=== PATIENT | female | born 1990 ===

== ENCOUNTER 2016-11-02 08:30 | Emergency (ER) | payer MEDICAID, OTHER ==
[2016-11-02 08:31] VITALS: BMI 27.4
[2016-11-02 08:57] VITALS: BP 116/80; PULSE 62; RESP 16; TEMP 98.5; O2SAT 98
--- NOTE | 2016-11-02 09:21 | C.PDOC ---
History Of Present Illness 26 y/o female presents to the ED stating she "thinks something crawled in my ear last night" while sleeping. PMHx bipolar disorder. Denies fever, chills, pain, discharge from the ear or any other complaints. Time Seen by Provider: 11/02/16 09:18 Chief Complaint (Nursing): Foreign Body History Per: Patient History/Exam Limitations: None Onset/Duration Of Symptoms: Hrs Current Symptoms Are (Timing): Still Present Quality (Ear): denies: Discharge Quality (Mouth/Throat): denies: Drainage Symptoms Have Been: Continuous Severity: Mild Anticoagulant/Antiplatlet Use?: No Past Medical History Reviewed: Historical Data, Nursing Documentation, Vital Signs Vital Signs: Last Vital Signs Temp 98.5 F 11/02/16 08:57 Pulse 62 11/02/16 08:57 Resp 16 11/02/16 08:57 BP 116/80 11/02/16 08:57 Pulse Ox 98 11/02/16 10:31 - Medical History PMH: Anxiety, Bipolar Disorder, Depression, Diabetes, Hypercholesterolemia, Chronic Kidney Disease - [facility] Procedures GROUP PSYCHOTHERAPY (09/30/16) INDIVID PSYCHOTHERAP NEC (07/25/14) INDIVIDUAL PSYCHOTHERAPY, BEHAVIORAL (09/30/16) INDIVIDUAL PSYCHOTHERAPY, COGNITIVE-BEHAVIORAL (06/03/16) INDIVIDUAL PSYCHOTHERAPY, SUPPORTIVE (06/03/16) MEDICATION MANAGEMENT (08/23/15) OTHER GROUP THERAPY (07/25/14) PSYCHIAT DRUG THERAP NEC (04/18/12) Family History: States: Unknown Family Hx - Social History Hx Tobacco Use: No Hx Alcohol Use: Yes (occassional) Hx Substance Use: No - Immunization History Hx Tetanus Toxoid Vaccination: No Hx Influenza Vaccination: No Hx Pneumococcal Vaccination: No Review Of Systems Constitutional: Negative for: Fever, Chills ENT: Positive for: Other (foreign body sensation to right ear). Negative for: Ear Pain, Ear Discharge Physical Exam - Physical Exam Appears: Non-toxic, No Acute Distress Skin: Warm, Dry, No Rash Head: Atraumatic, Normacephalic Eye(s): left: Other (eye patch) Ear(s): Bilateral: Normal (bilateral canal and TM normal; no foreign body) Nose: Normal Oral Mucosa: Moist Throat: Normal Neck: Normal, Normal ROM, Supple Neurological/Psych: Oriented x3, Normal Speech ED Course And Treatment O2 Sat by Pulse Oximetry: 98 (room air) Pulse Ox Interpretation: Normal Medical Decision Making Medical Decision Making: eval of b/l ear canals, no FB, normal TM's Disposition Doctor Will See Patient In The: Office Counseled Patient/Family Regarding: Studies Performed, Diagnosis - Disposition Referrals: [facility] [Outside] Disposition: HOME/ ROUTINE Disposition Time: 09:21 Condition: GOOD Additional Instructions: you have NORMAL ear exams today there is NO foreign body in your ear canals Follow-up with your PMD as needed or in our FREE clinic. Forms: General Discharge Instructions - Clinical Impression Clinical Impression: ENT complaint - Scribe Statement The provider has reviewed the documentation as recorded by the Sung Avalos Provider Attestation: All medical record entries made by the Sung were at my direction and personally dictated by me. I have reviewed the chart and agree that the record accurately reflects my personal performance of the history, physical exam, medical decision making, and the department course for this patient. I have also personally directed, reviewed, and agree with the discharge instructions and disposition.
== END 2016-11-02 09:37 | disposition home or self-care (01) ==
LOC: C.ER 08:30 → SUPCPDRO 08:30 → C.ER 09:37
DX: H93.8X1 Other specified disorders of right ear (principal)

== ENCOUNTER 2016-11-05 16:57 | Inpatient (IN) | payer MEDICAID, OTHER ==
[2016-11-05 16:57] VITALS: BMI 27.4
[2016-11-05 19:10] LABS: BASO # 0.1 K/uL (0.0-0.2); BASO % 0.6 % (0.0-2.0); EOS # 0.4 K/uL (0.0-0.7); EOS % 4.3 % (0.0-4.0); HEMOGLOBIN 12.1 g/dL (11.0-16.0); LYMPH # 2.4 K/uL (1.0-4.3); LYMPH % 24.9 % (20.0-40.0); MEAN CELL VOLUME 77.5 fL (81.0-99.0); MEAN CORPUSCULAR HGB CONC 32.3 g/dL (33.0-37.0); MEAN PLATELET VOLUME 7.7 fL (7.2-11.7); MONO # 0.8 K/uL (0.0-0.8); MONO % 8.8 % (0.0-10.0); NEUT # 5.8 K/uL (1.8-7.0); NEUT % 61.4 % (50.0-75.0); RBC 4.85 Mil/uL (3.80-5.20); RED CELL DISTRIBUTION WIDTH 13.7 % (11.5-14.5); WHITE BLOOD COUNT 9.4 K/uL (4.8-10.8)
[2016-11-05 19:16] LABS: ALBUMIN 4.2 g/dL (3.5-5.0); HCG,QUALITATIVE URINE NEGATIVE (NEGATIVE)
[2016-11-05 19:18] LABS: GFR AFRICAN-AMERICAN > 60; GFR NON-AFRICAN AMERICAN > 60; SQUAMOUS EPITHIAL 81 /hpf (0-5); URINE BILIRUBIN NEGATIVE (NEGATIVE); URINE BLOOD NEGATIVE (NEGATIVE); URINE CALCIUM OXALATE CRYSTALS MANY /hpf (<OCC); URINE CLARITY Hazy (Clear); URINE GLUCOSE (UA) NORMAL (Normal); URINE LEUKOCYTE ESTERASE 3+ Leu/uL (Negative); URINE NITRATE NEGATIVE (NEGATIVE); URINE PROTEIN 1+ mg/dL (NEGATIVE); URINE UROBILINOGEN NORMAL mg/dL (0.2-1.0)
[2016-11-05 19:19] LABS: ALB/GLOB RATIO 1.2 (1.0-2.1); ALT/SGPT 38 U/L (9-52); AST/SGOT 26 U/L (14-36); BLOOD UREA NITROGEN 15 mg/dL (7-17); CALCIUM 9.3 mg/dl (8.6-10.4); URINE BACTERIA FEW (<OCC); URINE COLOR YELLOW (YELLOW)
[2016-11-05 19:23] LABS: BARBITURATES, UR NEGATIVE (NEGATIVE)
[2016-11-05 19:24] LABS: BENZODIAZEPINES, UR NEGATIVE (NEGATIVE)
[2016-11-05 19:27] LABS: OPIATES, UR NEGATIVE (NEGATIVE)
[2016-11-05 19:28] LABS: PHENCYCLIDINE, UR NEGATIVE (NEGATIVE)
[2016-11-05] MEDS ORDERED: Permethrin 1% Kit 59 ML BOTTLE TOP STA (20:21)
--- NOTE | 2016-11-05 21:11 | C.PDOC ---
Time Seen by Provider: 11/05/16 17:50 Chief Complaint (Nursing): Psychiatric Evaluation History Per: Patient Onset/Duration Of Symptoms: Days (1) Current Symptoms Are (Timing): Still Present Suicide/Self Injury Attempted (Context): None Modifying Factor(s): None Severity: Moderate Associated Symptoms: Anxiety, Depression. denies: Suicidal Thoughts, Suicidal Plan Additional History Per: Prior Records Past Medical History Reviewed: Historical Data, Nursing Documentation, Vital Signs Vital Signs: Last Vital Signs Temp 98.7 F 11/05/16 17:09 Pulse 94 H 11/05/16 17:09 Resp 18 11/05/16 17:09 BP 112/78 11/05/16 17:09 Pulse Ox 99 11/05/16 17:09 - Medical History PMH: Anxiety, Bipolar Disorder, Depression, Hypercholesterolemia, Chronic Kidney Disease - [facility] Procedures GROUP PSYCHOTHERAPY (09/30/16) INDIVID PSYCHOTHERAP NEC (07/25/14) INDIVIDUAL PSYCHOTHERAPY, BEHAVIORAL (09/30/16) INDIVIDUAL PSYCHOTHERAPY, COGNITIVE-BEHAVIORAL (06/03/16) INDIVIDUAL PSYCHOTHERAPY, SUPPORTIVE (06/03/16) MEDICATION MANAGEMENT (08/23/15) OTHER GROUP THERAPY (07/25/14) PSYCHIAT DRUG THERAP NEC (04/18/12) Family History: States: Unknown Family Hx - Social History Hx Tobacco Use: No Hx Alcohol Use: No (occassional) Hx Substance Use: No - Immunization History Hx Tetanus Toxoid Vaccination: No Hx Influenza Vaccination: No Hx Pneumococcal Vaccination: No Review Of Systems Except As Marked, All Systems Reviewed And Found Negative. Constitutional: Negative for: Fever, Weakness Cardiovascular: Negative for: Chest Pain Respiratory: Negative for: Shortness of Breath Gastrointestinal: Negative for: Vomiting, Abdominal Pain Musculoskeletal: Negative for: Neck Pain Skin: Negative for: Rash Neurological: Negative for: Weakness, Numbness, Seizures, Altered Mental Status Physical Exam - Physical Exam Appears: Non-toxic, No Acute Distress Skin: Normal Color, Warm, Dry, No Rash Head: Atraumatic, Normacephalic Eye(s): bilateral: PERRL, EOMI Neck: Normal ROM, Supple Cardiovascular: Rhythm Regular Respiratory: Normal Breath Sounds, No Accessory Muscle Use Gastrointestinal/Abdominal: Soft, No Tenderness Back: No CVA Tenderness Extremity: Normal ROM Neurological/Psych: Oriented x3, Normal Motor, Normal Sensation ED Course And Treatment - Laboratory Results Result Diagrams: 11/05/16 19:04 11/05/16 19:04 Lab Interpretation: No Acute Changes Urine POC: Negative O2 Sat by Pulse Oximetry: 99 Pulse Ox Interpretation: Normal Progress Note: Pt is medically stable for psychiatric admission. Pt with possible lice. Pt treated with Nix in the ED. Reassessment Condition: Improved Disposition Counseled Patient/Family Regarding: Studies Performed, Diagnosis - Disposition Disposition: HOSPITALIZED Disposition Time: 21:00 Condition: STABLE - Clinical Impression Clinical Impression: Bipolar disorder Decision To Admit - Pt Status Changed To: Hospital Disposition Of: Inpatient - Admit Certification Admit to Inpatient:: After my assessment, the patient will require hospitalization for at least two midnights. This is because of the severity of symptoms shown, intensity of services needed, and/or the medical risk in this patient being treated as an outpatient. - InPatient: Physician Admission Certification: I certify that this patient requires 2 or more midnights of care for the following reason:: Psych. - . Bed Request Type: Psychiatry Admitting Physician: Sosa Georges Patient Diagnosis: Bipolar disorder
[2016-11-05 21:53] VITALS: O2SAT 98
[2016-11-05] MEDS ORDERED: Permethrin 1% Kit 59 ML BOTTLE TOP ONE (23:30)
--- NOTE | 2016-11-06 15:56 | PCM.PSYCH ---
Initial Psychiatric Evaluation - Initial Psychiatric Evaluation Type of Admission: Voluntary Legal Status: Capacity Chief Complaint (in patient's own words): 'I am feeling depressed and suicidal' History of Present Illness and Precipitating Events: Patient is a 26-year-old female, who lives alone, came to the hospital for feeling depressed and suicidal. Patient remained bizarre, disorganized and internally preoccupied during the evaluation. She was superficially cooperative and remained guarded about the details. She states that she stopped taking her pills and became increasingly depressed and yesterday she was feeling suicidal and scared, 'I was going to cut myself." She reports feelings of hopelessness and helplessness. She appeared disheveled and unkempt. As per the staff, her wig and hair were full of lice. She appeared to have thought blocking. But she denies any auditory or visual hallucinations. She denies any history of substance abuse. Patient reports multiple suicidal attempts in the past, i.e, by cutting her wrists, and taking pills. She has h/o multiple past psychiatric hospitalizations with most recent one in September 2016 at [place], [place]. Past medical history hypercholesterolemia, Left eye blindness s/p eye-patch. Current Medications: Active Medications Generic Name Dose Route Start Last Admin Trade Name Freq PRN Reason Stop Dose Admin Escitalopram Oxalate 5 mg 11/06/16 10:00 11/06/16 10:44 Lexapro PO 5 mg DAILY BAMBI Administration Hydroxyzine HCl 50 mg 11/05/16 22:00 Atarax PO Q6H PRN Anxiety Ibuprofen 600 mg 11/05/16 22:00 Motrin Tab PO Q6H PRN Pain, moderate (4-7) Quetiapine Fumarate 200 mg 11/05/16 22:00 11/06/16 00:40 Seroquel PO 200 mg HS BAMBI Administration Quetiapine Fumarate 25 mg 11/06/16 10:00 11/06/16 10:44 Seroquel PO 25 mg DAILY BAMBI Administration Trazodone HCl 50 mg 11/05/16 22:00 11/06/16 00:39 Desyrel PO Not Given HS BAMBI Past Psychiatric History - Past Psychiatric History Previous Treatment History: Inpatient Pertinent Medical Hx (Current Medical&Sleep Prob, Allergies): Allergies Allergy/AdvReac Type Severity Reaction Status Date / Time No Known Allergies Allergy Verified 11/05/16 17:01 Escitalopram [Lexapro] 5 mg PO DAILY #30 tab 10/06/16 QUEtiapine [SEROquel] 200 mg PO HS #30 tab 10/06/16 QUEtiapine [Seroquel] 25 mg PO DAILY #30 tab 10/06/16 Review of Systems - Review of Systems All systems: reviewed and no additional remarkable complaints except - Psychiatric Psychiatric: Anxiety, Depression, Hopelessness, Paranoia, Suicidal Ideation Mental Status Examination - Personal Presentation Personal Presentation: Looks stated age - Affect Affect: Constricted, Blunted, Depressed - Motor Activity Motor Activity: Calm - Reliability in Providing Information Reliability in Providing Information: Poor, due to alteration in thoughts, Poor , due to altered mood - Speech Speech: Disorganized - Mood Mood: Depressed, Anxious - Formal Thought Process Formal Thought Process: Delusions, Paranoia, Loosening of associations - Obsessions/Compulsions Obsessions: No Compulsions: No - Cognitive Functions Orientation: Person, Place, Situation, Time Sensorium: Alert Attention/Concentration: Attentive Abstract Thinking: Alkol Estimate of Intelligence: Below average Judgement: Imparied, as evidence by: Poor judgement, Imparied, as evidence by: Lack of insight into illness - Risk Risk: Suicidal, Diminished functioning - Strength & Assets Inventory Strength & Assets Inventory: Cooperative - Limitations Limitations: Living alone DSM 5 DX - DSM 5 DSM 5 Diagnosis: Bipolar disorder mixed severe with psychotic features r/o Borderline personalty disorder - Recommended/Plan of Treatment Treatment Recommendations and Plan of Treatment: Bipolar disorder mixed severe with psychotic features r/o Borderline personalty disorder CBT Psychoeducation Supportive therapy, group therapy, individual therapy Lexapro 5 mg PO Daily Seroquel 25 mg by mouth daily Seroquel 200 mg by mouth at bedtime Trazodone 50 mg by mouth at bedtime Hypercholestrolimia Monitor s/s L eye blindness Monitor signs and symptoms
--- NOTE | 2016-11-07 11:10 | PCM.PYCHPN ---
Psychiatric Progress Note - Psychiatric Progress Note Patient seen today, length of contact: 16 min Patient Chief Complaint: 'I am feeling depressed and suicidal' Problems Identified/Issues Discussed: Patient seen and evaluated, chart reviewed and discussed with the nurse. Patient remained disorganized and internally preoccupied. Patient remained isolated, confined and withdrawn. She appears depressed and paranoid. She reports feelings of hopelessness and helplessness. She remained isolated and withdrawn. As per the nursing staff she has body and hair lice, and she was continuously scratching throughout the interview. She is taking medication and denies any side effects. Supportive therapy and psychoeducation were given. Medication Change: No Medical Record Reviewed: Yes Mental Status Examination - Cognitive Function Orientation: Person, Place, Situation, Time Memory: Intact Attention: Poor Concentration: Poor Association: Loose Fund of Knowledge: Poor - Mood Mood: Depressed, Anxious - Affect Affect: Constricted, Blunted, Depressed - Formal Thought Process Formal Thought Process: Delusions, Paranoia, Loosening of associations - Homicidal Ideation Homicidal Ideation: No Goal/Treatment Plan - Goal/Treatment Plan Need for Continued Stay: Discharge may exacerbated symptoms, Severe functional impairment Progress Toward Problem(s) and Goals/Treatment Plan: Bipolar disorder mixed severe with psychotic features r/o Borderline personalty disorder CBT Psychoeducation Supportive therapy, group therapy, individual therapy Lexapro 5 mg PO Daily Seroquel 25 mg by mouth daily Seroquel 200 mg by mouth at bedtime Trazodone 50 mg by mouth at bedtime Hypercholestrolimia Monitor s/s L eye blindness Monitor signs and symptoms - Smoking Cessation Smoking Cessation Initiated: No
--- NOTE | 2016-11-08 10:42 | PCM.PYCHPN ---
Psychiatric Progress Note - Psychiatric Progress Note Patient seen today, length of contact: 15 min Patient Chief Complaint: 'I am feeling little better' Problems Identified/Issues Discussed: Patient seen and evaluated, chart reviewed and discussed with the nurse. Patient appeared more organized and less internally preoccupied than before. however she remained isolated, confined and withdrawn. She appears depressed and paranoid. She was still scratching herself throughout the interview, because of lice. She is taking medication and denies any side effects. Supportive therapy and psychoeducation were given. Medication Change: Yes (increase Seroquel) Medical Record Reviewed: Yes Mental Status Examination - Cognitive Function Orientation: Person, Place, Situation, Time Memory: Intact Attention: WNL Concentration: Poor Association: Loose Fund of Knowledge: Poor - Mood Mood: Depressed, Anxious - Affect Affect: Constricted, Blunted, Depressed - Speech Speech: Soft - Formal Thought Process Formal Thought Process: Delusions, Paranoia, Loosening of associations - Suicidal Ideation Suicidal Ideation: No - Homicidal Ideation Homicidal Ideation: No Goal/Treatment Plan - Goal/Treatment Plan Need for Continued Stay: Discharge may exacerbated symptoms, Severe functional impairment Progress Toward Problem(s) and Goals/Treatment Plan: Bipolar disorder mixed severe with psychotic features r/o Borderline personalty disorder CBT Psychoeducation Supportive therapy, group therapy, individual therapy Lexapro 5 mg PO Daily Seroquel 50 mg by mouth daily Seroquel 200 mg by mouth at bedtime Trazodone 50 mg by mouth at bedtime Hypercholestrolimia Monitor s/s L eye blindness Monitor signs and symptoms - Smoking Cessation Smoking Cessation Initiated: No
--- NOTE | 2016-11-09 14:22 | PCM.PYCHPN ---
Psychiatric Progress Note - Psychiatric Progress Note Patient seen today, length of contact: 17 min Patient Chief Complaint: "I am feeling better and less depressed" Problems Identified/Issues Discussed: The pt is seen, chart reviewed, case discussed with staff. Patient came out of her room, took shower and went one to the dining room. Today she reports improvement in her mood and appears less depressed. She denies any voices or hallucinations. 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 The pt is compliant with medications and reports no side-effects. Symptoms are improving but needs more time to stabilize. After care discussed, support and psychoeducation given. Medication Change: Yes (increase Lexapro) Medical Record Reviewed: Yes Mental Status Examination - Cognitive Function Orientation: Person, Place, Situation, Time Memory: Intact Attention: WNL Concentration: Poor Association: WNL Fund of Knowledge: Poor - Mood Mood: Depressed, Anxious - Affect Affect: Constricted, Blunted, Depressed - Speech Speech: Soft - Formal Thought Process Formal Thought Process: No Impairment - Suicidal Ideation Suicidal Ideation: No - Homicidal Ideation Homicidal Ideation: No Goal/Treatment Plan - Goal/Treatment Plan Need for Continued Stay: Severe depression anxiety, Discharge may exacerbated symptoms Progress Toward Problem(s) and Goals/Treatment Plan: Bipolar disorder mixed severe with psychotic features r/o Borderline personalty disorder CBT Psychoeducation Supportive therapy, group therapy, individual therapy Lexapro 10 mg PO Daily Seroquel 50 mg by mouth daily Seroquel 200 mg by mouth at bedtime Trazodone 50 mg by mouth at bedtime Hypercholestrolimia Monitor s/s L eye blindness Monitor signs and symptoms After care planning by JOSE Estimated Date of D/C: 11/12/16 - Smoking Cessation Smoking Cessation Initiated: No
[2016-11-10 09:43] VITALS: TEMP 97.8
[2016-11-10 15:41] VITALS: BP 121/85; PULSE 106; RESP 19
--- NOTE | 2016-11-10 16:00 | PCM.PYCHPN ---
Psychiatric Progress Note - Psychiatric Progress Note Patient seen today, length of contact: 18 min Patient Chief Complaint: "I am worried about how I will get my prescriptions" Problems Identified/Issues Discussed: The pt is seen, chart reviewed, case discussed with staff. Patient is out of bed today and reports feeling better. She denies any voices or hallucinations. Patient appears disorganized in thought, as if when talking to her, her mind is elsewhere. The pt is compliant with medications and reports no side-effects. Symptoms are improving but needs more time to stabilize. After care discussed, support and psychoeducation given. Medication Change: No Medical Record Reviewed: Yes Mental Status Examination - Cognitive Function Orientation: Person, Place, Situation, Time Memory: Intact Attention: WNL Concentration: Poor Association: WNL Fund of Knowledge: Poor - Mood Mood: Depressed, Anxious - Affect Affect: Constricted, Blunted, Depressed - Speech Speech: Soft - Formal Thought Process Formal Thought Process: No Impairment - Suicidal Ideation Suicidal Ideation: No - Homicidal Ideation Homicidal Ideation: No Goal/Treatment Plan - Goal/Treatment Plan Need for Continued Stay: Severe depression anxiety, Discharge may exacerbated symptoms Progress Toward Problem(s) and Goals/Treatment Plan: Bipolar disorder mixed severe with psychotic features r/o Borderline personalty disorder CBT Psychoeducation Supportive therapy, group therapy, individual therapy Lexapro 10 mg PO Daily Seroquel 100 mg by mouth daily Seroquel 200 mg by mouth at bedtime Trazodone 50 mg by mouth at bedtime Hypercholestrolimia Monitor s/s L eye blindness Monitor signs and symptoms After care planning by JOSE Estimated Date of D/C: 11/12/16 - Smoking Cessation Smoking Cessation Initiated: No
--- NOTE | 2016-11-11 10:14 | PCM.PYCHDC ---
Mental Status Examination - Mental Status Examination Orientation: Person, Place, Situation, Time Memory: Intact Mood: Neutral Affect: Constricted Speech: Soft Attention: WNL Concentration: WNL Association: WNL Fund of Knowledge: WNL Formal Thought Process: No Impairment Description of patient's judgement and insight: good, fair Psychotic Thoughts and Behaviors: Deneis any AVH Suicidal Ideation: No Current Homicidal Ideation?: No Discharge Summary - Discharge Note Reason for Hospitalization: Patient is a 26-year-old female, who lives alone, came to the hospital for feeling depressed and suicidal. Patient remained bizarre, disorganized and internally preoccupied during the evaluation. She was superficially cooperative and remained guarded about the details. She states that she stopped taking her pills and became increasingly depressed and yesterday she was feeling suicidal and scared, 'I was going to cut myself." She reports feelings of hopelessness and helplessness. She appeared disheveled and unkempt. As per the staff, her wig and hair were full of lice. She appeared to have thought blocking. But she denies any auditory or visual hallucinations. She denies any history of substance abuse. Patient reports multiple suicidal attempts in the past, i.e, by cutting her wrists, and taking pills. She has h/o multiple past psychiatric hospitalizations with most recent one in September 2016 at [place], [place]. Consultations:: List each consultation separately and include: 1. Reason for request. 2. Findings. 3. Follow-up Summary of Hospital Course include:: 1. Description of specific treatment plan utilized for patients during their course of treatmen. 2. Summarize the time- course for resolution of acute symptoms and/or regressed behaviors. 3. Describe issues identified and worked on during hospitalization. 4. Describe medication utilized. 5. Describe medical problems identified and treated. 6. Reassessment of suicide risk Summary of Hospital Course: During the course of her stay, patient (pt) started progressively improving and she no longer remained irritable, anxious and paranoid. Her mood and paranoia were improved and she started attending groups and meetings and started socializing. Patient denied any feelings of hopelessness, helplessness, and worthlessness, denied any problem with the sleep or appetite, denied suicidal ideation or homicidal ideation. Pt denied any auditory or visual hallucinations. Some changes were made in her current medications and patient was discharged on following medications. She tolerated these medications very well and denied any side effects. - Final Diagnosis (DSM 5) Condition upon Discharge: STABLE DSM 5: Bipolar disorder mixed severe with psychotic features Disposition: HOME/ ROUTINE Follow-up Treatment Plan: Education: Pt was educated and counseled about the risks and benefits of taking and not taking medications. Pt was educated and counseled about the risks of drinking and abusing drugs. Pt was educated and counseled to go to the ER or call 911 if pt develop suicidal ideation or homicidal ideation, worsening of symptoms or severe side effects of the meds. Prescriptions/Medication Reconciliation: Escitalopram [Lexapro] 10 mg PO DAILY #30 tab QUEtiapine [SEROquel] 200 mg PO HS #30 tab QUEtiapine [SEROquel] 100 mg PO DAILY #30 tab - Smoking Cessation Smoking Cessation Medication prescribed: No - Antipsychotic Medications Pt discharged on 2 or more routine antipsychotic medications: No
== END 2016-11-11 15:45 | disposition home or self-care (01) | DRG 430 ==
LOC: C.ER 16:57 → C.5E 21:12
PROVIDERS: ADMIT Psychiatry & Neurology Psychiatry; ATTEND Psychiatry & Neurology Psychiatry
PROC: GZ3ZZZZ Medication Management (ICD-10-PCS; principal; 2016-11-05)
PROC: GZHZZZZ Group Psychotherapy (ICD-10-PCS; 2016-11-05)
PROC: GZ56ZZZ Individual Psychotherapy, Supportive (ICD-10-PCS; 2016-11-05)
DX: F31.64 Bipolar disorder, current episode mixed, severe, with psychotic features (principal); R45.851 Suicidal ideations; N18.9 Chronic kidney disease, unspecified; H33.20 Serous retinal detachment, unspecified eye; F60.3 Borderline personality disorder; B85.2 Pediculosis, unspecified; E78.00 Pure hypercholesterolemia, unspecified; H54.42 Blindness, left eye, normal vision right eye

== ENCOUNTER 2016-12-14 08:05 | Emergency (ER) | payer MEDICAID ==
[2016-12-14 08:05] VITALS: BMI 27.4
[2016-12-14 08:19] VITALS: BP 112/79; PULSE 85; RESP 14; TEMP 99.2; O2SAT 97
--- NOTE | 2016-12-14 09:19 | C.PDOC ---
History Of Present Illness 26 year old female with PMH of bipolar disorder and anxiety, presents to the ER requesting medicine refill, stating she ran out yesterday. Patient denies SI, HI , chest pain, SOB, nausea or vomiting. Time Seen by Provider: 12/14/16 08:30 Chief Complaint (Nursing): Anxiety History Per: Patient History/Exam Limitations: no limitations Onset/Duration Of Symptoms: Days Modifying Factor(s): None Past Medical History Reviewed: Historical Data, Nursing Documentation, Vital Signs Vital Signs: Last Vital Signs Temp 99.2 F 12/14/16 08:10 Pulse 85 12/14/16 08:10 Resp 14 12/14/16 08:10 BP 112/79 12/14/16 08:10 Pulse Ox 97 12/14/16 09:24 - Medical History PMH: Anxiety, Bipolar Disorder, Depression, Hypercholesterolemia - [facility] Procedures GROUP PSYCHOTHERAPY (11/05/16) INDIVID PSYCHOTHERAP NEC (07/25/14) INDIVIDUAL PSYCHOTHERAPY, BEHAVIORAL (09/30/16) INDIVIDUAL PSYCHOTHERAPY, COGNITIVE-BEHAVIORAL (06/03/16) INDIVIDUAL PSYCHOTHERAPY, SUPPORTIVE (11/05/16) MEDICATION MANAGEMENT (11/05/16) OTHER GROUP THERAPY (07/25/14) PSYCHIAT DRUG THERAP NEC (04/18/12) Family History: States: No Known Family Hx - Social History Hx Tobacco Use: No Hx Alcohol Use: No Hx Substance Use: No - Immunization History Hx Tetanus Toxoid Vaccination: No Hx Influenza Vaccination: No Hx Pneumococcal Vaccination: No Review Of Systems Except As Marked, All Systems Reviewed And Found Negative. Cardiovascular: Negative for: Chest Pain Respiratory: Negative for: Shortness of Breath Gastrointestinal: Negative for: Nausea, Vomiting Psych: Positive for: Anxiety. Negative for: Suicidal ideation Physical Exam - Physical Exam Appears: Non-toxic, No Acute Distress Skin: Warm, Dry, No Rash Head: Atraumatic, Normacephalic Eye(s): bilateral: Normal Inspection Nose: Normal Oral Mucosa: Moist Neck: Normal ROM Chest: Symmetrical, No Tenderness Cardiovascular: Rhythm Regular, No Murmur Respiratory: Normal Breath Sounds, No Rales, No Rhonchi, No Wheezing Extremity: Bilateral: Atraumatic, Normal Color And Temperature, Normal ROM Neurological/Psych: Oriented x3, Normal Speech Gait: Steady ED Course And Treatment O2 Sat by Pulse Oximetry: 97 (RA ) Pulse Ox Interpretation: Normal Medical Decision Making Medical Decision Making: Impression: Needs med refill Prior records reviewed: Patient last seen 11/28/16 at [facility] for UTI. 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 Patient has a follow up appointment with [facility]. Disposition Counseled Patient/Family Regarding: Diagnosis - Disposition Referrals: [facility][1] [Outside] Disposition: HOME/ ROUTINE Disposition Time: 09:17 Condition: STABLE Additional Instructions: [facility] with [facility] at [address] [place] [address]. Please call [phone] or ext [phone] to arrange appointment. If you need to speak to someone immediately call Crisis Hotline [phone] Prescriptions: Escitalopram [Lexapro] 20 mg PO DAILY #12 tab Quetiapine Fumarate [Seroquel] 100 mg PO DAILY #12 tablet Quetiapine Fumarate [Seroquel] 200 mg PO HS #12 tablet Instructions: Medicine Refill (ED) Forms: [employer] (Scottish) - POA Present On Arrival: None - Clinical Impression Clinical Impression: Bipolar disorder, Medication refill - PA / BOTTOM POUND[employer] / Resident Statement MD/DO has reviewed & agrees with the documentation as recorded. - Scribe Statement The provider has reviewed the documentation as recorded by the Scribgermain Ayala All medical record entries made by the Ronnieibgermain were at my direction and personally dictated by me. I have reviewed the chart and agree that the record accurately reflects my personal performance of the history, physical exam, medical decision making, and the department course for this patient. I have also personally directed, reviewed, and agree with the discharge instructions and disposition.
== END 2016-12-14 09:59 | disposition home or self-care (01) ==
LOC: C.ER 08:05
DX: F31.9 Bipolar disorder, unspecified (principal); Z76.0 Encounter for issue of repeat prescription

== ENCOUNTER 2017-06-05 17:58 | Emergency (ER) | payer MEDICARE, OTHER ==
[2017-06-05 17:59] VITALS: BMI 26.6
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
[2017-06-05 22:29] VITALS: O2SAT 98
[2017-06-06 02:31] VITALS: BP 99/69; PULSE 101; RESP 18; TEMP 98.7
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
== END 2017-06-05 22:28 | disposition home or self-care (01) ==
LOC: C.ER 17:58 → C.EROB 17:58
DX: Z36.89 Encounter for other specified antenatal screening (principal)

== ENCOUNTER 2017-06-17 15:45 | Emergency (ER) | payer MEDICARE, OTHER ==
[2017-06-17 15:45] VITALS: BMI 26.6
[2017-06-17 16:03] VITALS: O2SAT 98
--- NOTE | 2017-06-17 17:16 | C.PDOC ---
History Of Present Illness 26 y/o female, with history of anxiety, bipolar disorder, and depression presents to the ER for psychiatric medication refill. Patient states that she takes Seroquel and Celexa.Patient denies suicidal ideation, homicidal ideation, and hallucinations. Of note, patient is approximately 20+ weeks .Patient denies abdominal pain, vaginal bleeding, and vaginal discharge. Chief Complaint (Nursing): Psychiatric Evaluation History Per: Patient History/Exam Limitations: no limitations Past Medical History Vital Signs: Last Vital Signs Temp 98.3 F 06/17/17 17:29 Pulse 89 06/17/17 17:29 Resp 16 06/17/17 17:29 BP 109/68 06/17/17 17:29 Pulse Ox 98 06/17/17 17:29 - Medical History PMH: Anxiety, Bipolar Disorder, Depression, Hypercholesterolemia Denies: Diabetes, Hepatitis, HIV, HTN, Peripheral Edema, Chronic Kidney Disease, Seizures, Sexually Transmitted Disease Other Surgeries: Hx of surgeries - [facility] Procedures GROUP PSYCHOTHERAPY (11/05/16) INDIVID PSYCHOTHERAP NEC (07/25/14) INDIVIDUAL PSYCHOTHERAPY, BEHAVIORAL (09/30/16) INDIVIDUAL PSYCHOTHERAPY, COGNITIVE-BEHAVIORAL (06/03/16) INDIVIDUAL PSYCHOTHERAPY, SUPPORTIVE (11/05/16) MEDICATION MANAGEMENT (11/05/16) OTHER GROUP THERAPY (07/25/14) PSYCHIAT DRUG THERAP NEC (04/18/12) Family History: States: No Known Family Hx - Social History Hx Tobacco Use: No Hx Alcohol Use: No Hx Substance Use: No - Immunization History Hx Tetanus Toxoid Vaccination: No Hx Influenza Vaccination: No Hx Pneumococcal Vaccination: No Review Of Systems Except As Marked, All Systems Reviewed And Found Negative. Gastrointestinal: Negative for: Abdominal Pain Genitourinary: Negative for: Vaginal Discharge, Vaginal Bleeding Psych: Negative for: Suicidal ideation Physical Exam - Physical Exam Appears: Non-toxic, No Acute Distress Skin: Normal Color, Warm Head: Atraumatic, Normacephalic Eye(s): bilateral: Normal Inspection Nose: Normal Oral Mucosa: Moist Neck: Supple Chest: Symmetrical Cardiovascular: Rhythm Regular Respiratory: Normal Breath Sounds, No Accessory Muscle Use, No Rales, No Rhonchi , No Wheezing Extremity: Normal ROM Neurological/Psych: Oriented x3, Normal Speech, Normal Motor, Normal Sensation ED Course And Treatment O2 Sat by Pulse Oximetry: 98 (RA) Pulse Ox Interpretation: Normal Progress Note: Patient given Benadryl PO. Patient discharged with prescription for Benadryl and advised to follow up with in a few days. Disposition - Disposition Referrals: Yesi Flores MD [Staff Provider] - Disposition: HOME/ ROUTINE Disposition Time: 17:20 Condition: GOOD Additional Instructions: Thank you for letting us take care of you today. The emergency medical care you received today was directed at your acute symptoms. If you were prescribed any medication, please fill it and take as directed. It may take several days for your symptoms to resolve. Return to the Emergency Department if your symptoms worsen, do not improve, or if you have any other problems. Please contact your doctor or call one of the physicians/clinics you have been referred to that are listed on the Patient Visit Information form that is included in your discharge packet. Bring any paperwork you were given at discharge with you along with any medications you are taking to your follow up visit. Our treatment cannot replace ongoing medical care by a primary care provider (PCP) outside of the emergency department. Thank you for allowing the [facility] team to be part of your care today. Follow up with Dr. Flores next week as scheduled for re-evaluation and further management. Prescriptions: DiphenhydrAMINE [Benadryl] 25 mg PO Q6 PRN #20 cap PRN Reason: Anxiety Instructions: Generalized Anxiety Disorder Forms: [employer] (Portuguese) - Clinical Impression Clinical Impression: Anxiety - Scribe Statement The provider has reviewed the documentation as recorded by the Sung Palm Provider Attestation: All medical record entries made by the Ronnieibe were at my direction and personally dictated by me. I have reviewed the chart and agree that the record accurately reflects my personal performance of the history, physical exam, medical decision making, and the department course for this patient. I have also personally directed, reviewed, and agree with the discharge instructions and disposition.
[2017-06-17 17:30] VITALS: BP 109/68; PULSE 89; RESP 16; TEMP 98.3
== END 2017-06-17 17:30 | disposition home or self-care (01) ==
LOC: C.ER 15:45
DX: F41.9 Anxiety disorder, unspecified (principal); E78.00 Pure hypercholesterolemia, unspecified